=== PATIENT | female | born 1940 | race Hispanic/Latino ===

== ENCOUNTER 2018-08-02 20:55 | Inpatient (IN) | payer MEDICARE ==
[~2018-08-02] VITALS: Ht 149.9 cm; Wt 59.4 kg
[~2018-08-02 20:55] MED LIST: AEC81 PO; ATOR20TA65 PO; CARV6.25 PO; FLUT1AER IH; FURO-152 PO; LISI2.5T2 PO; TICA90TA PO
[2018-08-02] MEDS ORDERED: ASPIRIN 325 MG TABLET ONE (21:08)
[2018-08-02] MEDS ORDERED: NITROGLYCERIN 1GM/1 INCH PACKET TD ONE (21:08)
[2018-08-02 21:55] LABS: BASOPHILS % (AUTO) 0.5 % (0.0-5.0); HEMATOCRIT 37.8 % (36-48); LYMPHOCYTES % (AUTO) 34.5 % (21.0-51.0); MEAN CORPUSCULAR HEMOGLOBIN 30.9 pg (27.0-33.0); MEAN CORPUSCULAR HGB CONC 33.8 g/dL (32.0-36.0); MEAN CORPUSCULAR VOLUME 91.5 fL (79-99); MONOCYTES % (AUTO) 9.7 % (3.0-13.0); NEUTROPHILS % (AUTO) 51.3 % (40.0-77.0); PLATELET COUNT (AUTO) 236 K/uL (130-400); RED BLOOD CELL COUNT(AUTO) 4.14 MIL/uL (4.00-5.50); RED CELL DISTRIBUTION WIDTH 12.8 % (11.0-15.5); WHITE BLOOD COUNT (AUTO) 5.5 K/uL (4.8-10.8)
[2018-08-02 22:17] LABS: B-TYPE NATRIURETIC PEPTIDE 24 pg/mL (0-100)
[2018-08-02 23:19] LABS: CREATININE 0.9 mg/dL (0.5-1.5); POTASSIUM 4.9 mmol/L (3.5-5.1)
[2018-08-02 23:24] LABS: ALBUMIN 3.6 g/dL (3.5-5.0); BILIRUBIN,TOTAL 0.2 mg/dL (0.2-1.0); TOTAL PROTEIN, SERUM 6.9 g/dL (6.0-8.3)
[2018-08-03 02:54] VITALS: BP 160/77
[2018-08-03 07:03] LABS: TROPONIN I 0.07 ng/mL (0.00-0.06)
[2018-08-03 08:00] VITALS: BP 141/76
[2018-08-03] MEDS: ASPIRIN 81 MG EC TAB PO SCH (10:17)
[2018-08-03] MEDS: LISINOPRIL 10 MG TABLET PO SCH (10:17)
[2018-08-03] MEDS: CARVEDILOL 6.25 MG TABLET PO SCH ×2 (10:17→21:56)
[2018-08-03 12:00] VITALS: BP 125/57
[2018-08-03 16:00] VITALS: BP 112/66
[2018-08-03 20:00] VITALS: BP 126/61
[2018-08-03] MEDS: ATORVASTATIN CALCIUM 20 MG TABLET PO SCH (21:56)
[2018-08-04 00:43] VITALS: BP 112/62
[2018-08-04 04:01] VITALS: BP 101/46
[2018-08-04 07:30] VITALS: BP 133/56
[2018-08-04] MEDS: LISINOPRIL 10 MG TABLET PO SCH (09:28)
[2018-08-04] MEDS: ASPIRIN 81 MG EC TAB PO SCH (09:29)
[2018-08-04] MEDS: FAMOTIDINE 20MG TAB 20 MG TAB PO SCH (09:29)
[2018-08-04] MEDS: CARVEDILOL 6.25 MG TABLET PO SCH ×2 (09:29→21:53)
[2018-08-04 11:00] VITALS: BP 117/61
[2018-08-04] MEDS: REGADENOSON 0.4 MG/5 ML PF SYG IVP SCH (12:51)
[2018-08-04 16:00] VITALS: BP 127/58
[2018-08-04 20:00] VITALS: BP 166/78
[2018-08-04] MEDS ORDERED: ISOSORBIDE MONO 30MG TAB SR PO ONE (21:44)
[2018-08-04] MEDS ORDERED: NITROGLYCERIN 0.4 MG SL TAB SL PRN (21:45)
[2018-08-04] MEDS: ATORVASTATIN CALCIUM 20 MG TABLET PO SCH (21:52)
[2018-08-04] MEDS ORDERED: ISOSORBIDE MONO 30MG TAB SR PO SCH (22:55)
[2018-08-05] VITALS (12 sets, daily range): BP systolic 86–177; BP diastolic 46–77
[2018-08-05] MEDS: REGADENOSON 0.4 MG/5 ML PF SYG IVP SCH (07:25)
--- NOTE | 2018-08-05 07:30 | NUR ---
DR HERRERA IN TO SEE PATIENT, REVIEWED LABS LAST TROP 0.34 ORDERED RECEIVED FOR PATIENT TO BE PLACED NPO AND CONSENT FOR HEART CATH WITH POSSIBLE INTERVENTION ( PATIENT AND DAUGHTER AGREE TO PLAN PROCEDURE) BALLISTICS EXPERT FORENSIC NOTIFIED AND DR MARION WILL BE DOING THE PROCEDURE
[2018-08-05] MEDS: LISINOPRIL 10 MG TABLET PO SCH (09:00)
[2018-08-05] MEDS: CARVEDILOL 6.25 MG TABLET PO SCH ×2 (09:00→20:17)
[2018-08-05] MEDS: ASPIRIN 81 MG EC TAB PO SCH (09:00)
[2018-08-05] MEDS: FAMOTIDINE 20MG TAB 20 MG TAB PO SCH (09:00)
[2018-08-05] MEDS: ISOSORBIDE MONO 30MG TAB SR PO SCH (09:00)
[2018-08-05 09:17] LABS: INR 0.97 (0.85-1.15); PARTIAL THROMBOPLASTIN TIME 29.8 SEC (26.3-35.5); PROTHROMBIN TIME 10.2 SEC (9.6-11.6)
--- NOTE | 2018-08-05 09:30 | NUR ---
CM CHART REVIEWED. ADVISED BY RN THAT DISCHARGE WAS CANCELLED, PT WILL BE TAKEN TO ASSOCIATE PROFESSOR PHYSICIAN BY DR. HERRERA. MEETS INPATIENT CRITERIA, PENDING CALL TO DR. DONITA BRIDGES,PENDING IA
[2018-08-05] MEDS ORDERED: LIDOCAINE HCL 2% 20ML ONE (16:47)
[2018-08-05] MEDS ORDERED: HEPARIN SODIUM 1000UNIT/ML 10ML VIAL ONE (16:47)
[2018-08-05] MEDS ORDERED: IOHEXOL-350 50ML VIAL IV ONE (16:47)
[2018-08-05] MEDS ORDERED: IOHEXOL 350 MG/ML 100ML INFUS..BTL IV ONE (16:47)
[2018-08-05] MEDS ORDERED: NITROGLYCERIN 5 MG/ML 10 ML VIAL IV ONE (16:47)
--- NOTE | 2018-08-05 17:00 | NUR ---
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
[2018-08-05] MEDS ORDERED: MIDAZOLAM HCL 1 MG/ML 2ML VIAL ONE (17:20)
[2018-08-05] MEDS ORDERED: FENTANYL CITRATE PF 50 MCG/1 ML 2ML VIAL ONE (17:21)
[2018-08-05] MEDS ORDERED: BIVALIRUDIN 250 MG/VIAL IV ONE (17:42)
--- NOTE | 2018-08-05 18:00 | NUR ---
PATIENT TRANSFERRED TO 228 FROM [facility] , BELONGING GATHERED AND TAKING TO 2ND FLOOR .
[2018-08-05] MEDS ORDERED: ASPIRIN 325MG EC TAB 325 MG TABLET.DR PO ONE (18:15)
[2018-08-05] MEDS ORDERED: CLOPIDOGREL BISULFATE 300 MG TAB ONE (18:15)
[2018-08-05] MEDS ORDERED: SODIUM CHLORIDE 0.9% 1000ML 1,000 ML IV SCH (18:34)
[2018-08-05] MEDS ORDERED: ONDANSETRON HCL 4 MG/2 ML VIAL IVP PRN (18:45)
[2018-08-05] MEDS ORDERED: ACETAMINOPHEN-CODEINE 300/30MG TAB PO PRN ×2 (18:45)
--- NOTE | 2018-08-05 18:48 | NUR ---
IA DEFERRED, INPT ORDER ELIZABETH HENRIQUEZ TO DO IA PN PT AFTER TRANSFER TO [facility]. STAFF STILL WORKING WITH HER. ORDER BRETT DUCKWORTH FOR IP AND FAXED
--- NOTE | 2018-08-05 19:00 | NUR ---
PATIENT TRANSFERRED FROM [facility]. AAOX3. S/P LEFT HEART CATH. PERCLOSE TO RT GROIN. SITE SOFT WITHOUT BLEEDING OR HEMATOMA. PEDAL PULSES PALPABLE. BEDREST UNTIL 2229. REMINDED PATIENT NOT TO LIFT OR BEND RT. LEG. PATIENT VERBALIZED UNDERSTANDING. WILL CONTINUE TO MONITOR.
--- NOTE | 2018-08-05 20:00 | NUR ---
RT. GROIN CHECKED FREQUENTLY. SITE SOFT WITHOUT BLEEDING OR HEMATOMA. PEDAL PULSES PALPABLE.
[2018-08-05] MEDS: ATORVASTATIN CALCIUM 20 MG TABLET PO SCH (20:17)
--- NOTE | 2018-08-05 21:30 | NUR ---
RT. GROIN CHECKED FREQUENTLY. SITE SOFT. NO HEMATOMA OR BLEEDING NOTED.
--- NOTE | 2018-08-05 22:30 | NUR ---
BEDREST OVER. SITE CONTINUES TO BE SOFT WITHOUT BLEEDING OR HEMATOMA.
--- NOTE | 2018-08-05 23:15 | NUR ---
PATIENT UP TO BATHROOM. VOIDED WITHOUT DIFFICULTY. RT. GROIN CONTINUES TO BE SOFT WITHOUT BLEEDING OR HEMATOMA.
--- NOTE | 2018-08-06 01:45 | NUR ---
RT. SAIMA MAGAÑA.
[2018-08-06 03:44] LABS: MEAN CORPUSCULAR HEMOGLOBIN 30.9 pg (27.0-33.0); MEAN CORPUSCULAR HGB CONC 34.3 g/dL (32.0-36.0); MEAN CORPUSCULAR VOLUME 90.3 fL (79-99); PLATELET COUNT (AUTO) 160 K/uL (130-400); RED BLOOD CELL COUNT(AUTO) 3.65 MIL/uL (4.00-5.50); RED CELL DISTRIBUTION WIDTH 12.8 % (11.0-15.5); WHITE BLOOD COUNT (AUTO) 5.9 K/uL (4.8-10.8)
[2018-08-06 04:00] VITALS: BP 145/78
[2018-08-06 04:05] LABS: CREATININE 1.1 mg/dL (0.5-1.5); POTASSIUM 3.8 mmol/L (3.5-5.1)
[2018-08-06 07:00] VITALS: BP 146/70
[2018-08-06] MEDS ORDERED: GUAIFENESIN-DM 200/20 MG 10 ML PO PRN (07:00)
[2018-08-06] MEDS: LISINOPRIL 10 MG TABLET PO SCH (08:51)
[2018-08-06] MEDS: ASPIRIN 81 MG EC TAB PO SCH (08:51)
[2018-08-06] MEDS: CARVEDILOL 6.25 MG TABLET PO SCH (08:52)
[2018-08-06] MEDS: FAMOTIDINE 20MG TAB 20 MG TAB PO SCH (08:52)
[2018-08-06] MEDS: ISOSORBIDE MONO 30MG TAB SR PO SCH (08:52)
[2018-08-06] MEDS ORDERED: PANTOPRAZOLE SODIUM 40 MG TABLET.DR PO SCH (09:00)
[2018-08-06] MEDS ORDERED: CLOPIDOGREL BISULFATE 75 MG TAB PO SCH (09:00)
[2018-08-06 11:00] VITALS: BP 115/52
[2018-08-06] MEDS ORDERED: IPRATROPIUM/ALBUTEROL SULFATE 3 ML SOLUTION IH SCH ×2 (12:00→14:00)
--- NOTE | 2018-08-06 12:21 | NUR ---
SPOKE WITH ALO OF [facility] AND CALLED IN PRESCRIPTION FOR PLAVIX 75MG PO DAILY #[address] HERRERA[address]
--- NOTE | 2018-08-06 14:48 | NUR ---
DC PLAN PATIENT DISCHARGED HOME ALREADY GONE. NO NEEDS VERBALIZED BY NURSING STAFF. Addendum: 08/06/18 at 1449 by SKYLER REYNA RN CM Amended: Links added.
[2018-08-08] MEDS ORDERED: CLOP75TA32 PO (19:38)
[2018-08-08] MEDS ORDERED: GUAI-1211 PO (19:44)
[2018-08-09] MEDS ORDERED: ROSU5TAB11 PO (00:06)
[2018-08-09] MEDS ORDERED: VIT D 50,000 PO (00:06)
[2018-08-09] MEDS ORDERED: FLUO10CA21 PO (00:06)
[2018-08-09] MEDS ORDERED: FLUT16H NS (00:06)
[2018-08-09] MEDS ORDERED: LEVO88TA4 PO (00:06)
== END 2018-08-06 13:30 | disposition home or self-care (01) | DRG 247 ==
LOC: EDH 20:55 → OBSVTOIN 08-03 00:36 → EDHIP 08-03 00:36 → 4CH 08-03 02:27 → 2DH 08-05 18:34
PROVIDERS: ADMIT Internal Medicine Nephrology; ATTEND Internal Medicine Nephrology
PROC: 027034Z Dilation of Coronary Artery, One Artery with Drug-eluting Intraluminal Device, Percutaneous Approach (ICD-10-PCS; principal; 2018-08-05)
PROC: B2111ZZ Fluoroscopy of Multiple Coronary Arteries using Low Osmolar Contrast (ICD-10-PCS; 2018-08-05)
PROC: 4A023N7 Measurement of Cardiac Sampling and Pressure, Left Heart, Percutaneous Approach (ICD-10-PCS; 2018-08-05)
PROC: B2151ZZ Fluoroscopy of Left Heart using Low Osmolar Contrast (ICD-10-PCS; 2018-08-05)
PROC: B41F1ZZ Fluoroscopy of Right Lower Extremity Arteries using Low Osmolar Contrast (ICD-10-PCS; 2018-08-05)
DX: I21.4 Non-ST elevation (NSTEMI) myocardial infarction (principal); I25.110 Atherosclerotic heart disease of native coronary artery with unstable angina pectoris; I10 Essential (primary) hypertension; E78.5 Hyperlipidemia, unspecified; I25.5 Ischemic cardiomyopathy; J45.909 Unspecified asthma, uncomplicated; K21.9 Gastro-esophageal reflux disease without esophagitis; Z96.653 Presence of artificial knee joint, bilateral; M19.90 Unspecified osteoarthritis, unspecified site; R73.03 Prediabetes; I34.0 Nonrheumatic mitral (valve) insufficiency; Z82.3 Family history of stroke; Z83.3 Family history of diabetes mellitus; Z90.710 Acquired absence of both cervix and uterus; Z95.5 Presence of coronary angioplasty implant and graft; Z88.8 Allergy status to other drugs, medicaments and biological substances; Z79.82 Long term (current) use of aspirin; Z79.899 Other long term (current) drug therapy; Z71.6 Tobacco abuse counseling
CPT/HCPCS: 36415; 71045; 78452; 80048; 80053; 80061; 82550; 83874; 83880; 84484; 85025; 85027; 85610; 85730; 93005; 93017; 93458; 94640; 94664; 96374; 99156; 99157; A9500; C1725; C1760; C1769; C1887; C1894; C9600; G0378; J0583; J1644; J2250; J2785; J3010; J3490; J7030; Q9967

== ENCOUNTER 2020-02-24 12:47 | Emergency (ER) | payer MEDICARE ==
[~2020-02-24 12:47] MED LIST changes: +CLOP75TA32 PO; -FLUT1AER IH; -FURO-152 PO; +GUAI-1211 PO; -TICA90TA PO
[2020-02-24] MEDS ORDERED: ACETAMINOPHEN 325 MG TAB ONE (13:08)
[2020-02-24 13:47] LABS: BASOPHILS % (AUTO) 0.2 % (0.0-5.0); EOSINOPHILS % (AUTO) 0.5 % (0.0-8.0); HEMATOCRIT 36.7 % (36-48); LYMPHOCYTES % (AUTO) 16.3 % (21.0-51.0); MEAN CORPUSCULAR HEMOGLOBIN 30.3 pg (27.0-33.0); MEAN CORPUSCULAR HGB CONC 33.8 g/dL (32.0-36.0); MEAN CORPUSCULAR VOLUME 89.7 fL (79-99); MONOCYTES % (AUTO) 12.9 % (3.0-13.0); NEUTROPHILS % (AUTO) 69.6 % (40.0-77.0); PLATELET COUNT (AUTO) 177 K/uL (130-400); RED BLOOD CELL COUNT(AUTO) 4.09 MIL/uL (4.00-5.50); RED CELL DISTRIBUTION WIDTH 12.4 % (11.0-15.5); WHITE BLOOD COUNT (AUTO) 6.4 K/uL (4.8-10.8)
[2020-02-24 13:56] LABS: CREATININE 1.1 mg/dL (0.5-1.5); POTASSIUM 4.3 mmol/L (3.5-5.1)
[2020-02-24 14:01] LABS: ALBUMIN 4.2 g/dL (3.5-5.0); BILIRUBIN,TOTAL 0.4 mg/dL (0.2-1.0); TOTAL PROTEIN, SERUM 7.9 g/dL (6.0-8.3)
[2020-02-24 14:04] LABS: INR 0.94 (0.85-1.15); PARTIAL THROMBOPLASTIN TIME 25.6 SEC (26.3-35.5); PROTHROMBIN TIME 10.2 SEC (9.6-11.6)
[2020-02-24 14:55] LABS: APPEARANCE,URINE Clear (CLEAR); BILIRUBIN,URINE Negative (NEGATIVE); COLOR,URINE Yellow (YELLOW); GLUCOSE, URINE (UA) Negative (NEGATIVE); KETONES,URINE Trace mg/dL (NEGATIVE); LEUKOCYTE ESTERASE ,URINE Small (NEGATIVE); NITRATE,URINE Negative (NEGATIVE); OCCULT BLOOD,URINE Negative (NEGATIVE); PH,URINE 6.5 (5.0-8.0); PROTEIN,URINE Trace mg/dL (NEGATIVE)
[2020-02-24] MEDS ORDERED: DEXAMETHASONE SOD PHOSPHATE 10MG/ML 1ML VIAL ONE (15:08)
[2020-02-24] MEDS ORDERED: DOXYCYCLINE 100MG+NS 250ML 250 ML IV ONE ×2 (15:09→15:19)
[2020-02-24 15:11] LABS: BACTERIA,URINE Few /HPF (None Seen); RBC,URINE 0-1 /HPF (0-1)
[2020-02-24 15:12] LABS: MUCUS,URINE Few LPF (None Seen); SQUAMOUS EPITHELIAL CELL,UR Few /HPF (0-2)
[2020-02-24 15:27] LABS: ABG BASE EXCESS -0.9 mmol/L (-2.0-3.0); ABG HCO3 24.1 mmol/L (21.0-28.0); ABG OXYGEN SATURATION 93.1 % (95.0-99.0); ABG PCO2 41 mmHg (32-45)
== END 2020-02-24 17:17 | disposition home or self-care (01) ==
LOC: EDH 12:47
DX: U07.1 COVID-19 (principal); J12.89 Other viral pneumonia; R55 Syncope and collapse; E86.0 Dehydration; E86.9 Volume depletion, unspecified; E78.5 Hyperlipidemia, unspecified; I10 Essential (primary) hypertension; I25.10 Atherosclerotic heart disease of native coronary artery without angina pectoris; Z88.6 Allergy status to analgesic agent; Z88.5 Allergy status to narcotic agent; Z88.8 Allergy status to other drugs, medicaments and biological substances
CPT/HCPCS: 36415; 36600; 70450; 71045; 80053; 81001; 82550; 82803; 82948; 84484; 85025; 85610; 85730; 87040 ×2; 87088; 87426; 87804 ×2; 93005; 96365; 96366; 96375; 99285; J1100; J3490 ×2

== ENCOUNTER → 2020-11-17 | Outpatient (CLI) | payer MEDICARE | END | disposition home or self-care (01) | LOC: RAH 11:02 | PROVIDERS: ATTEND Internal Medicine Nephrology | DX: K21.9 Gastro-esophageal reflux disease without esophagitis (principal); R13.10 Dysphagia, unspecified | CPT/HCPCS: 74230; 92611 ==

== ENCOUNTER 2024-02-02 15:09 | Emergency (ER) | payer MEDICARE ==
[~2024-02-02] VITALS: Ht 152.4 cm; Wt 61.2 kg
[~2024-02-02 15:09] MED LIST changes: +ACET-66 PO; -GUAI-1211 PO; +LISI2.5T13 PO; -LISI2.5T2 PO
[2024-02-02 15:20] VITALS: TEMP 98.2
[2024-02-02] MEDS: dexaMETHasone SOD PHOSPHATE 4 MG/ML 1ML VIAL IM ONE (16:39)
[2024-02-02] MEDS: ketOROlac 30MG VIAL (30MG/ML) IM ONE (16:39)
[2024-02-02 17:56] VITALS: BP 146/62; PULSE 65; RESP 18; O2SAT 93
== END 2024-02-02 18:24 | disposition home or self-care (01) ==
LOC: EDH 15:09
DX: M54.50 Low back pain, unspecified (principal); E78.00 Pure hypercholesterolemia, unspecified; I10 Essential (primary) hypertension; I25.10 Atherosclerotic heart disease of native coronary artery without angina pectoris; J45.909 Unspecified asthma, uncomplicated; Z79.82 Long term (current) use of aspirin; Z79.899 Other long term (current) drug therapy; Z88.5 Allergy status to narcotic agent; Z90.710 Acquired absence of both cervix and uterus; Z95.5 Presence of coronary angioplasty implant and graft; Z95.810 Presence of automatic (implantable) cardiac defibrillator; Z96.653 Presence of artificial knee joint, bilateral
CPT/HCPCS: 99284; 72100; 96372 ×2; J1100; J1885

== ENCOUNTER → 2024-02-28 | Outpatient (CLI) | payer MEDICARE | END | disposition home or self-care (01) | LOC: RAH 09:58 | PROVIDERS: ATTEND Internal Medicine Cardiovascular Disease | DX: I71.40 Abdominal aortic aneurysm, without rupture, unspecified (principal) | CPT/HCPCS: 76775 ==